=== PATIENT | female | born 1955 | race Caucasian/White ===

== ENCOUNTER → 2023-08-30 13:34 | Outpatient (REF) | payer MEDICARE, OTHER, SELFPAY | LOC: WDC 13:34 | PROVIDERS: ATTENDING PHYSICIAN Family Medicine | DX: Z12.31 Encounter for screening mammogram for malignant neoplasm of breast (principal) | CPT/HCPCS: 77063; 77067 ==

== ENCOUNTER 2024-01-30 15:21 | Emergency (ER) | payer MEDICARE, OTHER, SELFPAY ==
[2024-01-30 15:37] VITALS: BMI 29.2
[2024-01-30 15:43] VITALS: BP 185/87
[2024-01-30 15:45] VITALS: BP 184/93
--- NOTE | 2024-01-30 16:03 | ED.GENMED ---
History of Present Illness
<Kaylyn Durand PA-C - Last Filed: 01/31/24 11:39>
General
Chief Complaint: Fall
Source: patient
Exam Limitations: none
Time Seen by Provider: 01/30/24 15:33
Nursing documentation reviewed up to this point in time: agreed with
History of Present Illness
History of Present Illness:
Patient is a 69 year old presenting to the emergency department following mechanical fall earlier today. Patient states that she was walking from her clubhouse back to her home at half time of the blood came when she tripped and fell on the
pavement falling forward striking the right side of her face. Patient denies any loss of conscious. Patient was able to get her own and walk home. However�when patient got home her thought that she should be seen in the emergency
department for evaluation.
Patient denies any headache, nausea/vomiting, visual changes, neck pain. Patient denies any dizziness, lightheadedness. Patient denies sustaining any other injuries in the fall. Patient walking independently without difficulty.
Last tetanus shot unknown
Past History
<Kaylyn Durand PA-C - Last Filed: 01/31/24 11:39>
Past History
ED Past Medical History: HTN, Hypercholesterolemia and Other (Diabetic but diet controlled, Celiac disease)
ED Past Surgical History: None
Social History
Tobacco: Non-smoker
Alcohol: Occasional
Personal:
Living: with family
Review of Systems
<Kaylyn Durand PA-C - Last Filed: 01/31/24 11:39>
Review of Systems
Allergies reviewed?: Yes
All Other Systems: ROS reviewed and negative except as documented in HPI and ROS
Phy Exam
<Kaylyn Durand PA-C - Last Filed: 01/31/24 11:39>
Physical Exam
Physical Exam:
GENERAL: No acute distress
HEENT: Contusion to right forehead with surrounding abrasion. Abrasion to right cheek. Mild tenderness overlying contusion. Pupils equal round and reactive to light bilaterally. Extraocular muscle intact. No signs of entrapment or proptosis no
nasal bone tenderness or obvious deformity. No tenderness to TMJ. No trismus. Dentition intact. Negative tongue depressor bite stick test. No other obvious trauma
NECK: no midline tenderness, normal range of motion, NEXUS criteria negative, no other obvious trauma
BACK: no midline tenderness, no other obvious trauma, right trapezial tenderness
CHEST: no tenderness, no flail segment, no subcutaneous emphysema, no other obvious trauma
LUNGS: clear to auscultation bilaterally
CARDIOVASCULAR: regular rate and rhythm
ABDOMEN: soft, non-tender, no masses, no other obvious trauma
PELVIS: stable, no obvious injury
EXTREMITIES: moving all extremities, distal pulses intact, no other obvious trauma
NEUROLOGIC: awake, alert x 3, no focal deficits
Course
<Kaylyn Durand PA-C - Last Filed: 01/31/24 11:39>
Orders/Labs/Results
Orders:
Orders
01/30/24 15:45
CT Head W/o Iv Contrast Urgent
Comment:
Reason For Exam: fall with head strike on concrete
01/30/24 17:31
Tetanus/Diphth/Acelpertussis [Adacel] 0.5 ml IM .ONCE ONE
Vital Signs
Initial and Last Documented VS:
Initial Vital Signs
Temp Pulse Resp Pulse Ox
99.0 F 108 16 98
01/30/24 15:22 01/30/24 15:22 01/30/24 15:22 01/30/24 15:22
Last Documented Vital Signs
Temp Pulse Resp BP Pulse Ox
99.0 F 86 16 140/49 99
01/30/24 15:22 01/30/24 17:31 01/30/24 17:31 01/30/24 17:31 01/30/24 17:31
<Lyndsay Almonte DO - Last Filed: 01/30/24 16:52>
Orders/Labs/Results
Orders:
Orders
01/30/24 15:45
CT Head W/o Iv Contrast Urgent
Comment:
Reason For Exam: fall with head strike on concrete
01/30/24 17:31
Tetanus/Diphth/Acelpertussis [Adacel] 0.5 ml IM .ONCE ONE
Vital Signs
Initial and Last Documented VS:
Initial Vital Signs
Temp Pulse Resp Pulse Ox
99.0 F 108 16 98
01/30/24 15:22 01/30/24 15:22 01/30/24 15:22 01/30/24 15:22
Last Documented Vital Signs
Temp Pulse Resp BP Pulse Ox
99.0 F 86 16 140/49 99
01/30/24 15:22 01/30/24 17:31 01/30/24 17:31 01/30/24 17:31 01/30/24 17:31
<Kaylyn Durand PA-C - Last Filed: 01/31/24 11:39>
MDM/Problems Addressed
Differential Diagnosis Includes:
Not limited to: Contusion, concussion, skull fracture, intracerebral bleed
MDM/Problems Addressed:
69 year old female presenting with head injury following mechanical fall with associated head strike. Patient with no current complaints. No headache, visual changes, nausea/vomiting, or confusion. No blood thinners. Patient well appearing on exam -
pleasant and conversational. Patient has fluid speech and steady gait. No focal neurologic deficits on exam. She does have a contusion to right forehead with surrounding abrasion. No evidence of ocular trauma or entrapment. No evidence of nasal
trauma. Patient has full ROM in neck with no c-spine tenderness. No evidence of trauma to extremities or pelvis. Will check head CT and update tetanus.
Update: Head CT normal. Patient stable for discharge with return precautions. Patient seen with attending physician.
Chronic conditions affecting care:
N/A
Acute Exacerbation and/or Progression of Chronic Illness:
N/A
<Kaylyn Durand PA-C - Last Filed: 01/31/24 11:39>
*Radiology
Radiology exam reviewed: preliminary read by ED provider and radiology read reviewed
*Pulse Oximetry
Patient hypoxic: no
*EKG
Interpreted by ED Provider?: NA
*Weight Recorder Interpretation
Rate: Weight Recorder- N/A
*Critical Care Note
Total Time (30-74mins, 75-104mins- exclusive of procedures): Not Applicable
ED Attending Note
<Kaylyn Durand PA-C - Last Filed: 01/31/24 11:39>
-
Portions of this chart may have been created with voice recognition software.� Occasional wrong word or��sound alike� substitutions may have occurred due to the inherent limitations of voice recognition software.
<Lyndsay Almonte DO - Last Filed: 01/30/24 16:52>
ED Attending Note
Patient seen and examined by attending physician: Yes
I performed the substantive portion of visit, reviewed & personally made and approve the management plan that is documented in note by myself or FRANK.: Yes
I performed a history and physical exam of patient and discussed management with resident, I reviewed resident's note and agree with documented findings and plan of care.: Yes
ED Attending Note:
69-year-old female presenting to the emergency department after a fall. Patient reports prior to arrival she was walking on the sidewalk and tripped, landed on the right side of her face with subsequent abrasions. Denies loss of consciousness.
She is not on any blood thinners. Denies any additional injuries from the fall. Tetanus unknown. Denies chest pain or difficulty breathing or additional acute medical complaints. Vital signs significant for high blood pressure.
On exam patient is well-appearing, no acute distress or discomfort. Obvious abrasion to the right side of the face without significant deformity or asymmetry. Mild swelling and ecchymosis. No significant swelling to the orbits, extraocular
movements intact. No tenderness to the cervical spine. No hematomas to the scalp. No signs of trauma to the extremities, chest/abdomen/pelvis. Given age, will screen with CT brain. Will update tetanus. Plan for outpatient follow-up and
supportive therapy
Discharge Plan
Departure
Patient Disposition: Home (Routine Discharge)
Date of Disposition: 01/30/24
Time of Disposition: 18:26
Patient with high blood pressure during this ER visit?: Yes
Condition: Good
Covid-19: Not Applicable
Discharge Problem:
Hematoma of frontal scalp, Head injury
Instructions: Concussion, Adult (DC), Contusion (DC), BLOOD PRESSURE
Prescriptions:
No Action
lisinopril 20 MG tablet
20 mg PO DAILY
aspirin 81 MG tablet,delayed release (DR/EC)
81 mg PO DAILY
levothyroxine 125 MCG tablet
125 mcg PO DAILY
rosuvastatin 5 MG tablet
5 mg PO DAILY
Referrals:
Agusto Deng MD [Family Provider] - Follow up in 5-7 days
Activity Restrictions/Additional Instructions:
RETURN TO THE EMERGENCY DEPARTMENT WITH SEVERE HEADACHE/NECK PAIN, VISUAL CHANGES, INTRACTABLE NAUSEA/VOMITING, PERSISTENT DIZZINESS/LIGHTHEADEDNESS, CHANGES IN MENTAL STATUS, WORSENING IN CURRENT SYMPTOMS, OR ANY OTHER CONCERNS
-As discussed�you should apply ice to forehead to decrease swelling/bruising. You can take Motrin and/or Tylenol as needed for discomfort.
-It is possible that he sustained a mild concussion. You should stay well-hydrated and take it easy over the next 2 days. Limit screen time. Limit any strenuous activities
-Follow-up with primary care for further evaluation/management
Monitor your symptoms closely and return to the emergency department with any acute worsening/new symptoms
Interventions
Interventions:
*Risk Screen - Suicide Last Done: 01/30/24 15:22
*General Assessment Last Done: 01/30/24 15:37
*Neglect/Abuse Screening Last Done: 01/30/24 15:22
ED- Fall Risk Assessment Last Done: 01/30/24 15:37
*ED COVID-19 Vaccine History Last Done: 01/30/24 15:37
*Nursing Disposition Last Done: 01/30/24 18:40
ED-Musculoskeletal Assessment Last Done: 01/30/24 15:37
ED- Neurological Assessment Last Done: 01/30/24 15:37
ED-Skin Assessment Last Done: 01/30/24 15:37
Discharge Date and Time
Discharge Date/Time: 01/30/24 18:40
Print Language: SETSWANA
[2024-01-30 17:31] VITALS: BP 140/49
[2024-01-30] MEDS: ADACEL 0.5 ML IM (18:37)
== END 2024-01-30 18:40 | disposition home or self-care (01) ==
LOC: EMR 15:21
PROVIDERS: EMERGENCY PHYSICIAN Student in an Organized Health Care Education/Training Program; FAMILY PHYSICIAN Family Medicine
DX: S00.03XA Contusion of scalp, initial encounter (principal); S09.90XA Unspecified injury of head, initial encounter; S00.81XA Abrasion of other part of head, initial encounter; W01.0XXA Fall on same level from slipping, tripping and stumbling without subsequent striking against object, initial encounter; Y93.01 Activity, walking, marching and hiking; Z23 Encounter for immunization; I10 Essential (primary) hypertension; E11.9 Type 2 diabetes mellitus without complications; E78.00 Pure hypercholesterolemia, unspecified; K90.0 Celiac disease; E07.9 Disorder of thyroid, unspecified; Z79.82 Long term (current) use of aspirin
CPT/HCPCS: 99284; 90471; 70450; 90715

== ENCOUNTER → 2024-06-13 14:08 | Outpatient (REF) | payer MEDICARE, OTHER, SELFPAY | LOC: RAD 14:08 | PROVIDERS: ATTENDING PHYSICIAN Physician Assistant Medical; FAMILY PHYSICIAN Family Medicine | DX: R07.81 Pleurodynia (principal); M54.6 Pain in thoracic spine | CPT/HCPCS: 71101; 72072 ==

== ENCOUNTER → 2024-08-17 07:28 | Outpatient (REF) | payer MEDICARE, OTHER, SELFPAY | LOC: RAD 07:28 | PROVIDERS: ATTENDING PHYSICIAN Family Medicine; FAMILY PHYSICIAN Family Medicine | DX: R10.84 Generalized abdominal pain (principal); R10.2 Pelvic and perineal pain | CPT/HCPCS: 74177; Q9967 ==

== ENCOUNTER → 2024-09-05 13:24 | Outpatient (REF) | payer MEDICARE, OTHER, SELFPAY | LOC: WDC 13:24 | PROVIDERS: ATTENDING PHYSICIAN Physician Assistant Medical | DX: Z13.820 Encounter for screening for osteoporosis (principal); Z12.31 Encounter for screening mammogram for malignant neoplasm of breast; Z78.0 Asymptomatic menopausal state | CPT/HCPCS: 77063; 77067; 77080 ==

== ENCOUNTER 2025-01-31 19:26 | Emergency (ER) | payer MEDICARE, OTHER, SELFPAY ==
[2025-01-31 19:32] VITALS: BP 192/95
[2025-01-31 19:51] LABS: Hematocrit 42.8 % (37.0-47.0); Hemoglobin 14.5 g/dL (12.0-16.0); Mean Corp Hgb Conc. 33.9 g/dL (33.0-37.0); Mean Corpuscular Volume 90.5 fL (81.0-99.0); Nucleated Red Blood Cells % 0 %; Platelet Count 369 10^3/uL (130-400); Red Cell Dist. Width 12.0 % (11.5-14.5)
[2025-01-31 20:11] LABS: ALT (SGPT) 22 U/L (0-35); AST (SGOT) 20 U/L (14-36); Albumin 4.3 g/dl (3.5-5.0); Alkaline Phosphatase 85 U/L (38-126); Blood Urea Nitrogen 13 mg/dl (7-17); Calcium 9.4 mg/dl (8.4-10.2); Carbon Dioxide 26 mmol/L (22-30); Chloride 102 mmol/L (98-107); Glucose 258 mg/dl (70-99); Potassium 4.6 mmol/L (3.5-5.1); Sodium 135 mmol/L (135-145); Total Protein 6.9 g/dl (6.3-8.2); eGFR > 60.00
[2025-01-31 20:14] LABS: Troponin I < 0.012 ng/ml
[2025-01-31 21:52] VITALS: BMI 33.6
[2025-01-31 22:00] VITALS: BP 197/66
[2025-01-31 23:00] VITALS: BP 180/139
[2025-01-31 23:09] VITALS: BP 168/59
--- NOTE | 2025-01-31 23:13 | ED.GENMED ---
History of Present Illness
General
Chief Complaint: Chest Pain
Source: patient and spouse
Time Seen by Provider: 01/31/25 22:47
History of Present Illness
History of Present Illness:
70-year-old female presents to the emergency room complaining of chest pain. Patient has had some episodes of chest pain over the past couple days. Last episode was shortly before coming to the emergency room. She was sitting still relaxing when
she developed pain in the left chest. She describes it as a dull pain. It lasted short period of time. No associated shortness of breath, nausea, diaphoresis. Patient has been seen by Dr. Adam Mullen a few years ago for intermittent chest pain.
She had a negative stress test at that time and no further evaluation was deemed necessary. Patient denies any recent travel. The pain is not made worse by deep inspiration.
Past History
Past History
ED Past Medical History: HTN, Hypercholesterolemia and Other (Diabetic but diet controlled, Celiac disease)
ED Past Surgical History: None
Social History
Tobacco: Non-smoker
Alcohol: Occasional
Personal:
Living: with family
Phy Exam
Physical Exam
Physical Exam:
General: Awake, Alert, Oriented X3. No acute distress.
Vitals: unremarkable
Head: Atraumatic
Eyes: Pupils equal, EOMI
Throat: Airway intact, no exudates
Neck: Trachea midline
Lungs: Clear and equal b/l
Heart: Regular rate, no murmurs
Abd: Soft, Nontender, No pulsatile mass
Neuro: Nonfocal
Skin: Warm, dry, no rash
Extremities: pulses equal b/l, no edema
Scores
Heart Score for Chest Pain Patients
STEMI patient?: No
History: Slightly or Non-Suspicious
ECG: Nonspecific Repolarization
Age: >/= 65 years
Risk Factors: 1 or 2 Risk Factors
Troponin: </= Normal Limit
Heart Score for Chest Pain Patients: 4
Heart Score Risk: 20.3% MACE over next 6 weeks
Course
Orders/Labs/Results
Orders:
Orders
01/31/25 19:27
ECG [Electrocardiogram (*1)] Urgent
Reason for Study: Chest Pain
EKG- Treatment ONCE
01/31/25 19:40
Complete Blood Count/With Diff Urgent
Comprehensive Metabolic Panel Urgent
Troponin I Urgent
01/31/25 23:10
Aspirin Chewable [Low Strength Aspirin] 324 mg PO NOW STA
CR Chest - 2 Views Urgent
Comment:
Reason For Exam: chest pain
01/31/25 23:11
Electrocardiogram (*1) Urgent
Reason for Study: Chest Pain
EKG- Treatment ONCE
01/31/25 23:47
Troponin I Urgent
Abnormal Lab Results
01/31/25
19:40
Absolute Monos (auto) 0.8 H 10^3/uL
(0.1-0.6)
Creatinine 0.5 L mg/dL
(0.6-1.0)
Glucose 258 H mg/dl
(70-99)
01/31/25 19:40
01/31/25 19:40
Vital Signs
Initial and Last Documented VS:
Initial Vital Signs
Temp Pulse Resp BP Pulse Ox
98.5 F 84 16 192/95 98
01/31/25 19:32 01/31/25 19:32 01/31/25 19:32 01/31/25 19:32 01/31/25 19:32
Last Documented Vital Signs
Temp Pulse Resp BP Pulse Ox
98.5 F 69 12 175/60 96
01/31/25 19:32 01/31/25 23:15 01/31/25 23:15 01/31/25 23:40 02/01/25 00:45
MDM/Problems Addressed
Differential Diagnosis Includes:
Nonspecific chest pain, acute coronary syndrome, pneumothorax
MDM/Problems Addressed:
Patient presents with chest pain that is intermittent. She has no associated shortness of breath, diaphoresis etc. EKG is normal here x 2. Troponin is normal x 2. She is pain-free at the time my evaluation has remained so. Suspicion for acute
coronary syndrome is low but patient will follow-up with cardiology as an outpatient. Placed on the chest pain hotline.
*Radiology
Radiology exam reviewed: preliminary read by ED provider (No acute abnormalities)
*Pulse Oximetry
SaO2: 96
Oxygen Mode of Delivery: Room air
Patient hypoxic: no
*EKG
Interpreted by ED Provider?: Yes
Heart Rate: 72
Rate: normal
Rhythm: sinus
[place]: normal axis
Interval: normal interval
QRS Pattern: normal QRS
Ischemia: no ischemia
*Certified Adapted Physical Educator Interpretation
Rate: normal
Interpretation: normal
Rhythm: sinus
*Critical Care Note
Total Time (30-74mins, 75-104mins- exclusive of procedures): Not Applicable
ED Attending Note
-
Portions of this chart may have been created with voice recognition software.� Occasional wrong word or��sound alike� substitutions may have occurred due to the inherent limitations of voice recognition software.
Discharge Plan
Departure
Patient Disposition: Home (Routine Discharge)
Date of Disposition: 02/01/25
Time of Disposition: 00:44
Patient with high blood pressure during this ER visit?: Yes
Condition: Good
Discharge Problem:
Chest pain
Instructions: Chest Pain DCA Follow Up, BLOOD PRESSURE
Prescriptions:
No Action
lisinopril 20 MG tablet
20 mg PO DAILY
aspirin 81 MG tablet,delayed release (DR/EC)
81 mg PO DAILY
levothyroxine 125 MCG tablet
125 mcg PO DAILY
rosuvastatin 5 MG tablet
5 mg PO DAILY
Referrals:
Agusto Deng MD [Family Provider, Family Practice]
Adam Mullen MD [Active, Cardiology]
Activity Restrictions/Additional Instructions:
Your blood pressure has been moderately elevated here in the emergency room. Because you have explained how it is elevated when you are at the doctor's office but not at home I will not start a new medication now but you should discuss blood
pressure medication adjustments with your family doctor. You should also receive a call from Dr. Mullen's office to arrange a follow-up appointment
Interventions
Interventions:
*Risk Screen - Suicide Last Done: 01/31/25 19:32
*General Assessment Last Done: 01/31/25 19:32
*Neglect/Abuse Screening Last Done: 01/31/25 19:32
*ED- Fall Risk Assessment Last Done: 01/31/25 19:32
*ED COVID-19 Vaccine History Last Done: 01/31/25 19:32
*Nursing Disposition Last Done: 02/01/25 00:55
ED- Cardiac Assessment Last Done: 01/31/25 21:53
Discharge Date and Time
Discharge Date/Time: 02/01/25 00:56
Print Language: GUYANESE
[2025-01-31] MEDS: LOW STRENGTH ASPIRIN 324 MG PO (23:14)
[2025-01-31 23:40] VITALS: BP 175/60
[2025-02-01 00:27] LABS: Troponin I < 0.012 ng/ml
== END 2025-02-01 00:56 | disposition home or self-care (01) ==
LOC: EMR 19:26
PROVIDERS: Student in an Organized Health Care Education/Training Program; EMERGENCY PHYSICIAN Emergency Medicine; FAMILY PHYSICIAN Family Medicine
DX: R07.9 Chest pain, unspecified (principal); E11.9 Type 2 diabetes mellitus without complications; I10 Essential (primary) hypertension; E78.00 Pure hypercholesterolemia, unspecified; K90.0 Celiac disease; K86.81 Exocrine pancreatic insufficiency
CPT/HCPCS: 99284; 71046; 80053; 84484; 85025; 93005

== ENCOUNTER → 2025-02-26 07:50 | Outpatient (REF) | payer MEDICARE, OTHER, SELFPAY | LOC: HWRCS 07:50 | PROVIDERS: ATTENDING PHYSICIAN Internal Medicine Cardiovascular Disease; FAMILY PHYSICIAN Family Medicine | DX: R07.9 Chest pain, unspecified (principal) | CPT/HCPCS: 78452; 93017; A9500 ==